=== PATIENT | female | born 1985 | race Caucasian/White ===

== ENCOUNTER 2021-08-30 13:47 | Emergency (ER) | payer OTHER ==
[~2021-08-30] VITALS: Ht 152.4 cm; Wt 115.3 kg
[~2021-08-30 13:47] MED LIST: BENTYL20 MG PO; CEFUROXIME500 MG PO; JANUMET XR 50-1 EAC1 PO; PEPCID20 MG PO; PHENTERMINE H37.5 MG PO; PROMETHAZINE HC25 M1 PO; PROPRANOLOL HCL10 MG PO; REGLAN10 MG PO; TRAZODONE HCL100 MG PO; VICTOZA 3-0.6 MG/0.1 INJ; [UNRECOGNIZED DRUG - OTHER] PO
[2021-08-30] MEDS ORDERED: KETOROLAC TROMETHAMINE 30 MG/ML VIAL IV STA (14:17)
[2021-08-30] MEDS ORDERED: CYMBALTA60 MG PO (14:20)
[2021-08-30] MEDS ORDERED: BUSPIRONE HCL30 MG (14:20)
[2021-08-30] MEDS ORDERED: METHYLPREDNISOLONE SOD SUCC 125 MG/2ML VIAL IV ONE (14:30)
[2021-08-30] MEDS ORDERED: DIPHENHYDRAMINE HCL INJ 50 MG/ML VIAL IV ONE (14:30)
[2021-08-30] MEDS ORDERED: DIPHENHYDRAMINE HCL INJ 50 MG/ML VIAL ONE (15:10)
[2021-08-30] MEDS ORDERED: METHYLPREDNISOLONE SOD SUCC 125 MG/2ML VIAL ONE (15:10)
[2021-08-30] MEDS ORDERED: ONDANSETRON HCL INJ 2MG/ML 2ML 2 MG/ML VIAL IV NR (16:00)
[2021-08-30] MEDS ORDERED: CEFTRIAXONE 1 GM VIAL IV ONE (16:00)
[2021-08-30] MEDS ORDERED: Morphine 4mg Syringe 4 MG/ML INJ IV ONE (16:00)
[2021-08-30] MEDS ORDERED: CEFTRIAXONE 1 GM VIAL ONE (16:42)
[2021-08-30] MEDS ORDERED: ONDANSETRON HCL INJ 2MG/ML 2ML 2 MG/ML VIAL ONE (16:42)
[2021-08-30] MEDS ORDERED: Morphine 4mg Syringe 4 MG/ML INJ ONE (16:42)
[2021-08-30] MEDS ORDERED: SODIUM CHLORIDE 0.9% 50ML 50 ML ONE (16:42)
[2021-08-30] MEDS ORDERED: CEFDINIR300 MG PO (17:08)
[2021-08-30] MEDS ORDERED: ONDANSETRON ODT4 MG PO (17:08)
[2021-08-30] MEDS ORDERED: TAMIFLU75 MG PO (17:23)
== END 2021-08-30 17:21 | disposition home or self-care (01) ==
LOC: FSED 14:20
DX: R50.9 Fever, unspecified (principal); J11.1 Influenza due to unidentified influenza virus with other respiratory manifestations; R10.9 Unspecified abdominal pain; R22.9 Localized swelling, mass and lump, unspecified; E11.65 Type 2 diabetes mellitus with hyperglycemia; K21.9 Gastro-esophageal reflux disease without esophagitis; Z87.442 Personal history of urinary calculi
CPT/HCPCS: 71045; 74176; 80048; 80076; 81003; 81025; 83518; 85025; 87400; 96374; 96375; 99284; J0696; J1200; J2270; J2405; J2930

== ENCOUNTER 2022-08-26 15:49 | Emergency (ER) | payer BC, OTHER ==
[~2022-08-26] VITALS: Ht 152.4 cm; Wt 111.4 kg
[~2022-08-26 15:49] MED LIST changes: +BUSPIRONE HCL30 MG; +CEFDINIR300 MG PO; +CYMBALTA60 MG PO; +ONDANSETRON ODT4 MG PO; +TAMIFLU75 MG PO
[2022-08-26] MEDS ORDERED: TOUJEO MAX300 UNIT/1 SQ (16:32)
[2022-08-26] MEDS ORDERED: diamox (16:32)
[2022-08-26] MEDS ORDERED: TIZANIDINE HCL4 M1 PO (16:32)
[2022-08-26] MEDS ORDERED: CLONAZEPAM1 MG PO (16:32)
[2022-08-26] MEDS ORDERED: HYDROXYZIN10 MG/5 ML PO (16:32)
[2022-08-26] MEDS ORDERED: PROMETHAZINE HC25 M1 PO (16:32)
[2022-08-26] MEDS ORDERED: FAMOTIDINE 20 MG/2 ML VIAL IV STA (16:39)
[2022-08-26] MEDS ORDERED: DICYCLOMINE HCL 20 MG/2 ML VIAL IM ONE ×2 (16:45→17:05)
[2022-08-26] MEDS ORDERED: PROMETHAZINE 25MG/ NS 50ML (IV) IV ONE (16:45)
[2022-08-26] MEDS ORDERED: SODIUM CHLORIDE 0.9% 1000ML 1,000 ML IV SCH (16:45)
[2022-08-26] MEDS ORDERED: PROMETHAZINE HCL (IM) 25 MG/ML VIAL IM ONE (17:05)
[2022-08-26] MEDS ORDERED: SODIUM CHLORIDE 0.9% 1000ML 1,000 ML ONE (17:06)
[2022-08-26] MEDS ORDERED: FAMOTIDINE 20 MG/2 ML VIAL IV ONE (17:06)
[2022-08-26] MEDS ORDERED: METOCLOPRAMIDE HCL 10 MG/2ML VIAL IV ONE (18:00)
[2022-08-26] MEDS ORDERED: DIPHENHYDRAMINE HCL INJ 50 MG/ML VIAL IV ONE (18:00)
[2022-08-26] MEDS ORDERED: DIPHENHYDRAMINE HCL INJ 50 MG/ML VIAL ONE (18:23)
[2022-08-26] MEDS ORDERED: METOCLOPRAMIDE HCL 10 MG/2ML VIAL ONE (18:23)
== END 2022-08-26 19:27 | disposition home or self-care (01) ==
LOC: FSED 15:55
DX: R11.0 Nausea (principal); R10.13 Epigastric pain; K31.84 Gastroparesis; E11.65 Type 2 diabetes mellitus with hyperglycemia; S60.012A Contusion of left thumb without damage to nail, initial encounter; S40.012A Contusion of left shoulder, initial encounter; X50.1XXA Overexertion from prolonged static or awkward postures, initial encounter; Y99.0 Civilian activity done for income or pay; K21.9 Gastro-esophageal reflux disease without esophagitis; F41.9 Anxiety disorder, unspecified
CPT/HCPCS: 80048; 80076; 81003; 81025; 85025; 96372; 96374; 96375; 99283; J0500; J1200; J2550; J2765; J7030